=== PATIENT | male | born 1995 | race Caucasian/White ===

== ENCOUNTER 2019-06-16 15:21 | Emergency (ER) | payer SELFPAY ==
--- NOTE | 2019-06-16 15:33 | PDOC ---
Rapid Medical Evaluation Time Seen by Provider: 06/16/19 15:28 Medical Evaluation: 06/16/19 15:29 Pt c/o: cut with machine while cutting zucchini with electrical slicer, utd tdap ( last year) Pt on brief exam: rt 1 st digit with saturated guaze, not removed Pt ordered for: none pt to proceed to the ED Discharge Disposition - Diagnosis Finger laceration Qualifiers: Encounter type: initial encounter Finger: thumb Damage to nail status: without damage Foreign body presence: without foreign body Laterality: right Qualified Code(s): S61.011A - Laceration without foreign body of right thumb without damage to nail, initial encounter - Discharge Dispostion Disposition: HOME Condition at time of disposition: Stable - Referrals Referrals: Harley Felix MD [Staff Physician] - - Patient Instructions Additional Instructions: Rest, elevate, avoid strenuous activity or heavy lifting until sutures are removed Leave dressing on for the next 24 hours, Then may remove dressing gently and wash area with soap and water. Reapply bacitracin ointment and dressing daily for the next 5 days On day #6 keep the wound protected and cover as needed until sutures are removed allowing wound to start to dry May use Tylenol or Motrin for pain relief You have been given a referral for a hand specialist. If wound worsens schedule an appointment for follow-up. Suture removal in : 7-10 Days - Post Discharge Activity Work/School Note: Back to Work
[2019-06-16 15:35] VITALS: BP 142/77; PULSE 68; TEMP 98.4; BMI 36.1
--- NOTE | 2019-06-16 16:42 | PDOC ---
History of Present Illness - General Chief Complaint: Laceration Stated Complaint: RT. FINGER LAC. Time Seen by Provider: 06/16/19 15:28 History Source: Patient Exam Limitations: No Limitations - History of Present Illness Initial Comments: 06/16/19 16:42 HISTORY OF PRESENT ILLNESS: This a 24-year-old otherwise healthy male who presents emergency department for evaluation of laceration to his right thumb while cutting vegetables on a mandolin. Patient applied a dressing to his finger immediately after it happened and presented to the emergency department. He denies any numbness or tingling to his fingertips reports his last tetanus shot was a year ago when a similar incident happened while at work. Patient is right-hand dominant. No recent travel or sick contacts. PAST MEDICAL HISTORY: Denies past medical history SURGICAL HISTORY: Denies ALLERGIES: No known drug allergies REVIEW OF SYSTEMS General/Constitutional: Denies fever or chills. Denies weakness, weight change. HEENT: Denies change in vision. Denies ear pain or discharge. Denies sore throat. Cardiovascular: Denies chest pain or shortness of breath. Respiratory: Denies cough, wheezing, or hemoptysis. Gastrointestinal: Denies nausea, vomiting, diarrhea or constipation. Denies rectal bleeding. Genitourinary: Denies dysuria, frequency, or change in urination. Musculoskeletal: See HPI Skin and breasts: Denies rash or easy bruising. Neurologic: Denies headache, vertigo, loss of consciousness, or loss of sensation. Psychiatric: Denies depression or anxiety. Endocrine: Denies increased thirst. Denies abnormal weight change. Hematologic/Lymphatic: Denies anemia, easy bleeding, or history of blood clots. Allergic/Immunologic: Denies hives or skin allergy. Denies latex allergy. PHYSICAL EXAM General Appearance: Well-appearing, appropriately dressed. No apparent distress , no intoxication. Musculoskeletal/Extremities: Normal inspection. FROM of all extremities, normal capillary refill. Pelvis Stable. No CVA tenderness. No tenderness to extremities, pedal edema, swelling, erythema or deformity. Integumentary: Avulsion laceration to the distal tip of the right thumb. Bleeding is well controlled. No nailbed or nail involvement. Loss of sensation to the skin flap near laceration. Neurovascularly intact otherwise. Neurologic: cement car dumper II-XII intact. Fully oriented, alert. Appropriate mood/affect. Motor strength 5/5. No appreciable EOM palsy, facial droop or sensory deficit. Past History - Past Medical History Allergies/Adverse Reactions: Allergies Allergy/AdvReac Type Severity Reaction Status Date / Time No Known Allergies Allergy Verified 06/16/19 15:30 COPD: No - Immunization History TDAP Vaccination: Yes - Psycho Social/Smoking Cessation Hx Smoking History: Never smoked Hx Alcohol Use: No Drug/Substance Use Hx: No *Physical Exam - Vital Signs Last Vital Signs Temp Pulse Resp BP Pulse Ox 98.4 F 68 18 142/77 99 06/16/19 15:25 06/16/19 15:25 06/16/19 15:25 06/16/19 15:25 06/16/19 15:25 Procedures - Consent Consent obtained: Verbal, From Patient - Laceration/Wound Repair Right Distal Finger 1st digit Wound Length: to 2.5 cm Wound Explored: clean, no foreign body present Wound's Depth, Shape: superficial, flap Irrigated w/ Saline: Yes Betadine Prep: Yes Anesthesia: 2% Lidocaine Amount of Anesthetic (ccs): 4 Wound Debrided: minimal Wound Repaired With: Sutures Suture Size/Type: 4:0 Number of Sutures: 5 Layer Closure: No Sterile Dressing Applied: Yes Splint Applied: Yes Type of Splint Applied: finger splint Sling Applied: No Progress: 06/16/19 17:42 Patient tolerated well. ED Treatment Course - RADIOLOGY Radiology Studies Ordered: Category Date Time Status FINGER(S) RIGHT [RAD] Stat Radiology 06/16/19 16:41 Ordered Medical Decision Making - Medical Decision Making 06/16/19 16:45 A/P: 24-year-old male with laceration to the distal tip of his right thumb Given proximity to distal phalanx I will get an x-ray to rule out osseous involvement. Laceration repair-see procedure note for details Discharge home with prescription for Keflex. 06/16/19 17:41 X-rays read by me: No acute fractures or dislocations present. Discharge home with hand surgery follow-up as needed. Discharge - Discharge Information Problems reviewed: Yes Clinical Impression/Diagnosis: Finger laceration Qualifiers: Encounter type: initial encounter Finger: thumb Damage to nail status: without damage Foreign body presence: without foreign body Laterality: right Qualified Code(s): S61.011A - Laceration without foreign body of right thumb without damage to nail, initial encounter Condition: Stable Disposition: HOME - Admission No - Follow up/Referral Referrals: Harley Felix MD [Staff Physician] - - Patient Discharge Instructions Additional Instructions: Rest, elevate, avoid strenuous activity or heavy lifting until sutures are removed Leave dressing on for the next 24 hours, Then may remove dressing gently and wash area with soap and water. Reapply bacitracin ointment and dressing daily for the next 5 days On day #6 keep the wound protected and cover as needed until sutures are removed allowing wound to start to dry May use Tylenol or Motrin for pain relief You have been given a referral for a hand specialist. If wound worsens schedule an appointment for follow-up. Suture removal in : 7-10 Days - Post Discharge Activity Work/Back to School Note: Back to Work
== END 2019-06-16 17:43 | disposition home or self-care (01) ==
LOC: JERFT 15:21
PROC: 0HQFXZZ Repair Right Hand Skin, External Approach (ICD-10-PCS; principal; 2019-06-16)
PROC: 2W3GX1Z Immobilization of Right Thumb using Splint (ICD-10-PCS; 2019-06-16)
DX: S61.011A Laceration without foreign body of right thumb without damage to nail, initial encounter (principal); W27.4XXA Contact with kitchen utensil, initial encounter; Y93.G1 Activity, food preparation and clean up; Y92.511 Restaurant or cafe as the place of occurrence of the external cause; Y99.0 Civilian activity done for income or pay
CPT/HCPCS: 73140-TC-RT-FY; 99281-25